=== PATIENT | male | born 1975 | race Caucasian/White ===

== ENCOUNTER 2018-10-02 17:09 | Emergency (ER) | payer OTHER ==
[~2018-10-02] VITALS: Ht 175.3 cm; Wt 77.1 kg
[~2018-10-02 17:09] MED LIST: AUGMENTIN 875875 M1 PO; CARISOPRODOL 3350 MG PO; FLEXERIL PO; HYDROCODONE-AP1 EAC6 PO; IBUPROFEN 800800 MG PO; LIORESAL 10 MG10 MG PO; MEDROLDOSEPACK PO; METHADOSE40 MG PO; NAPROSYN375 MG PO; NOHOMEMEDICATIONS; NORCO 5-325 TA1 EACH PO; OXYCONTIN CR 1010 M1 PO; PERCOCET 5-3251 EACH PO; POLYMYXIN B/TMP10 ML OP; PREDNISONE 20 M20 MG PO; ROBAXIN 750 MG750 M1 PO; ULTRAM 50MG TAB50 MG PO; VENTOLIN HFA INH8 GM IH; ZPAK PO; ZYRTEC
[2018-10-02 17:15] VITALS: BP 139/97
--- NOTE | 2018-10-03 14:59 | EKG ---
[place] [address] ELECTROCARDIOGRAM REPORT Name: AIRAM NAIDU Room: [facility]#: [id number] Admission: 10/02/18 Attend Phys: Discharge: 10/02/18 Date of : 77 Report #: [id number] THIS REPORT FOR: //name// [facility] ED Test Date: 2018-10-02 Test Time: 17:19:39 Pat Name: AIRAM NAIDU Department: Room: Gender: M [employer]: FLORIDALMA : 1975 Requested By: Seferino Barnes Order Number: [id number] Darcie MD: Niraj Coffey Measurements Intervals [place] Rate: 106 P: 40 TN: 109 QRS: 14 QRSD: 99 T: 42 QT: 340 QTc: 452 Interpretive Statements Sinus tachycardia Compared to ECG 06/09/2014 18:22:29 Sinus rhythm no longer present Electronically Signed On 10-03-2018 14:59:43 PERFORMANCE ENGINEER by Niraj Coffey [email or web address] <ELECTRONICALLY SIGNED> By: Niraj Coffey MD, [facility] 10/03/18 1459 1719 1719 Niraj Coffey MD, FACC /EPI
== END 2018-10-02 17:45 | disposition home or self-care (01) ==
LOC: M.ERS 17:09
DX: S46.811A Strain of other muscles, fascia and tendons at shoulder and upper arm level, right arm, initial encounter (principal); G89.29 Other chronic pain; M54.9 Dorsalgia, unspecified; E04.9 Nontoxic goiter, unspecified; Z88.0 Allergy status to penicillin; W18.39XA Other fall on same level, initial encounter; Y93.89 Activity, other specified; Y92.89 Other specified places as the place of occurrence of the external cause; Y99.8 Other external cause status

== ENCOUNTER 2019-03-16 03:03 | Emergency (ER) | payer OTHER ==
[~2019-03-16] VITALS: Ht 175.3 cm; Wt 74.8 kg
[2019-03-16 03:09] VITALS: BP 143/88
[2019-03-16] MEDS ORDERED: ZOFRAN ODT4 MG DISSOLVE (03:26)
[2019-03-16] MEDS ORDERED: BENTYL 20 MG TA20 M1 PO (03:26)
== END 2019-03-16 03:31 | disposition home or self-care (01) ==
LOC: M.ERS 03:03
DX: F11.10 Opioid abuse, uncomplicated (principal); G89.29 Other chronic pain; M54.9 Dorsalgia, unspecified; Z88.0 Allergy status to penicillin